=== PATIENT | female | born 1940 | race Caucasian/White ===

== ENCOUNTER → 2018-03-11 | Outpatient (CLI) | payer MEDICARE, OTHER ==
[~2018-03-11] MED LIST: ASPIR 8181 MG PO; BENADRYL25 MG PO; CALCIUM 600 +1 EAC1 PO; COLACE100 MG PO; DIOVAN HCT 1601 EAC1 PO; HYDROCODONE-AP1 EAC6 PO; OSTEO BI-FLEX1 EAC3 PO; OXYCODONE HCL 55 MG PO; XARELTO10 MG PO
== END ==
LOC: M.RAD 09:50
DX: Z12.31 Encounter for screening mammogram for malignant neoplasm of breast (principal)

== ENCOUNTER → 2021-01-12 | Outpatient (CLI) | payer MEDICARE, OTHER | LOC: M.RAD 10:10 | DX: Z12.31 Encounter for screening mammogram for malignant neoplasm of breast (principal) ==